=== PATIENT | female | born 1980 | race Caucasian/White ===

== ENCOUNTER 2023-10-18 17:50 | Emergency (ER) | payer OTHER, SELFPAY ==
[2023-10-18] VITALS (7 sets, daily range): BP systolic 128–139; BP diastolic 58–86; PULSE 82–90; RESP 18; TEMP 37.1; O2SAT 94–97; BMI 38.2
--- NOTE | 2023-10-18 18:17 | ED_ITS ---
HPI - Eye Problem General Chief complaint: Eye Problems Stated complaint: Dr magaña/sudden vision loss Time Seen by Provider: 10/18/23 18:15 Source: patient Mode of arrival: Ambulatory History of Present Illness HPI Narrative: 43-year-old female with recent diagnosis of diabetes starting oral agent last month, PCP in [facility], she is camping locally, felt that she has had blurred vision and loss of near vision since yesterday, worsening blurred and near vision problems both eyes through the day today, wears the same prescription reading glasses. She denies any weakness to her face arm or leg. She denies numbness to face arm or leg. She has no visual spots or double vision. She has no associated headache or neck pain. She has not had any previous stroke before. She is taking her oral agent, checking her sugars, her sugar today was 160 not particularly elevated. She has not take blood thinner medication, denies use of aspirin or Plavix or other antiplatelet agents Related Data Allergies Allergy/AdvReac Type Severity Reaction Status Date / Time No Known Drug Allergies Allergy Verified 10/18/23 18:03 Review of Systems Review of Systems Narrative: per HPI Patient History Social History Smoking Status: Never smoker Smoking Status: Never smoker alcohol intake frequency: other Substance Use Type: does not use Exam Narrative Exam Narrative: GENERAL: Well-developed patient, in mild distress. HEAD: Atraumatic. Normocephalic. EYES: Pupils equal round and reactive. Extraocular motions intact. No scleral icterus. No injection or drainage. Wearing corrective lens glasses that appear to be in good condition. ENT: Nose without bleeding, purulent drainage. Throat without erythema, tonsillar hypertrophy or exudate. Airway patent. NECK: Trachea midline. Non tender CARDIOVASCULAR: Regular rate and rhythm without murmurs, gallops, or rubs. RESPIRATORY: Clear to auscultation. Breath sounds equal bilaterally. No wheezes, rales, or rhonchi. GASTROINTESTINAL: Abdomen soft, non-tender, nondistended. EXTREMITIES: No edema or joint tenderness. BACK: Nontender without deformity or crepitance. No flank tenderness. NEURO: AOx3. Motor 5/5 upper and lower extremities. Cranial nerve exam unremarkable. Extraocular muscles intact, no visual field defects on confrontational field testing, wearing her usual corrective lens glasses. SKIN: No rash or erythema of visible areas Initial Vital Signs Initial Vital Signs: Vital Signs Temperature 98.7 F 10/18/23 17:56 Pulse Rate 82 10/18/23 17:56 Respiratory Rate 18 10/18/23 17:56 Blood Pressure 139/86 10/18/23 17:56 Pulse Oximetry 94 10/18/23 17:56 Oxygen Delivery Method Room Air 10/18/23 17:56 Course Orders Ordered: ED Orders 10/18/23 18:16 CT angio head and neck Stat 10/18/23 18:31 CBC Auto Diff [Complete Blood Count AUTO DIFF] Stat CMP [Comprehensive Metabolic Panel] Stat Hemoglobin A1C% w Est Avg Glu Stat Prothrombin Time INR Stat 10/18/23 18:38 MR head/brain wo con Stat Vital Signs Vital signs: Vital Signs - 8 hr 10/18/23 20:10 10/18/23 20:11 10/18/23 20:11 Pulse Rate 85 90 Blood Pressure 138/77 Pulse Oximetry 97 97 10/18/23 20:30 10/18/23 20:30 10/18/23 20:57 Pulse Rate 82 83 Blood Pressure 130/58 L Pulse Oximetry 95 95 10/18/23 20:58 Pulse Rate Blood Pressure 130/61 Pulse Oximetry MDM - Eye Problem Lab Data Attestation: I reviewed the patient's lab results. 10/18/23 18:31 10/18/23 18:31 Labs: Lab Results 10/18/23 Range/Units 18:31 WBC 8.0 (4.5-11.0) X10^3/uL RBC 4.72 (4.0-5.2) X10^6/uL Hgb 12.6 (12.0-16.0) g/dL Hct 38.6 (36-46) % MCV 81.7 (80-100) fL MCH 26.8 (26-34) PG MCHC 32.8 (30-36) % RDW 15.3 H (11.6-14.8) % Plt Count 353 (150-400) X10^3/uL Neut % (Auto) 63.5 (50-75) % Lymph % (Auto) 30.0 (25-40) % Craig % (Auto) 4.4 (3-14) % Eos % (Auto) 1.3 L (2-4) % Baso % (Auto) 0.8 (0-2) % Neut # (Auto) 5100 (3811-1418) /uL Lymph # (Auto) 2400 (0701-5960) /uL Craig # (Auto) 400 (0-900) /uL Eos # (Auto) 100 (0-450) /uL Baso # (Auto) 100 (0-100) /uL PT 11.6 (9.4-12.5) SECONDS INR 1.0 (0.9-1.3) Sodium 139 (137-145) mmol/L Potassium 3.7 (3.4-5.1) mmol/L Chloride 106 (98-107) mmol/L Carbon Dioxide 22 (22-32) mmol/L BUN 13 (7-17) mg/dL Creatinine 0.84 (0.52-1.04) mg/dL Estimated GFR > 60 (>60) mL/min BUN/Creatinine Ratio 15.5 (6-22) Glucose 132 H (70-100) mg/dL Hemoglobin A1c 8.6 H (4.0-6.0) % Calcium 9.2 (8.4-10.2) mg/dL Total Bilirubin 0.3 (0.2-1.3) mg/dL AST 37 H (14-36) IU/L ALT 32 (<35) IU/L Alkaline Phosphatase 83 (38-126) U/L Total Protein 7.8 (6.3-8.2) g/dL Albumin 4.3 (3.5-5.0) g/dL Globulin 3.5 (1.7-4.1) g/dL Albumin/Globulin Ratio 1.2 (1.0-2.8) Imaging Data CT scan - head: Radiologist's Impression: [address] [address] [address] Scan Report Signed Patient: Ni Tyler MR#: [id number] : 1980 Acct:[id number] Age/Sex: 43 / F Date of Service: 10/18/23 Loc: ED Accession Number: [id number] Procedure: CT head/brain wo con Ordering Provider: Delfino Escamilla MD PROCEDURE: CT HEAD/BRAIN WO CON INDICATIONS: vision loss TECHNIQUE: Noncontrast 4.5 mm thick angled axial sections acquired from the foramen magnum to the vertex, with coronal and sagittal reformats. For radiation dose reduction, the following was used: automated exposure control, adjustment of mA and/or kV according to patient size. COMPARISON: None. FINDINGS: Image quality: Diagnostic. CSF spaces: Basal cisterns are patent. No extra-axial fluid collections. Ventricles are normal in size and shape. Brain: No midline shift. No intracranial masses or hemorrhage. Curtis-white matter interface is normal. Skull and face: Calvarium and visualized facial bones are intact, without suspicious lesions. Sinuses: Visualized sinuses and mastoids are clear. IMPRESSION: No acute intracranial pathology. Dictated by: Zack Sim M.D. on 10/18/2023 at 19:21 Approved by: Zack Sim M.D. on 10/18/2023 at 19:22 CT Angiogram Head and Neck: Radiologist's Impression: [place] [address] CT Scan Report Signed Patient: Ni Tyler MR#: [id number] : 1980 Acct:[id number] Age/Sex: 43 / F Date of Service: 10/18/23 Loc: ED Accession Number: [id number] Procedure: CT angio head and neck Ordering Provider: Delfino Escamilla MD PROCEDURE: CT ANGIO HEAD AND NECK INDICATIONS: acute vision loss TECHNIQUE: After the administration of intravenous contrast, 1 mm thick sections acquired from the aortic arch through the [place] of [place]. 3-dimensional pkiqeof-avqrmgfyk-mpldzlbsrw (MIP) and/or volume rendering reformats were acquired of the central intracranial vasculature and neck separately. For radiation dose reduction, the following was used: automated exposure control, adjustment of mA and/or kV according to patient size. COMPARISON: None. FINDINGS: Image quality: Diagnostic. BRAIN: CSF spaces: Ventricles are normal in size and shape. Basal cisterns are patent. No extra-axial fluid collections. Brain: No significant abnormality of the brain can be seen. Skull and face: Calvarium and facial bones appear intact, without suspicious lesions. Orbits appear normal. Sinuses: Sinuses and mastoids are clear. HEAD CT ANGIOGRAPHY: Anterior circulation: Intracranial internal carotid arteries are normal in size and flow. The flow within the paired anterior cerebral arteries is normal and symmetric. The flow within the middle cerebral arteries is normal and symmetric. The anterior communicating artery is seen. No aneurysms are seen. Posterior circulation: Visualized portions of the vertebral arteries demonstrate normal caliber, and join to form a normal appearing basilar artery. Flow within the posterior cerebral arteries is normal and symmetric. No aneurysms are seen. NECK CT ANGIOGRAPHY: Carotid system: The great vessels demonstrate a conventional anatomy as they arise from the aortic arch. The origins of the common carotid arteries appear patent. The common carotid arteries demonstrate normal caliber and courses. The bifurcation regions are both widely patent. The internal carotid arteries demonstrate normal calibers and courses. Posterior circulation: The origins of the vertebral arteries both appear widely patent. The more superior extracranial portions of both vertebral arteries also demonstrate normal courses and calibers. They join to form a normal appearing basilar artery. Soft tissues: Visualized neck soft tissues demonstrate no suspicious abnormalities. Bones: No suspicious bony lesions. Visualized cervical spine appears normally aligned. IMPRESSION: No significant intracranial arterial abnormality is seen. No significant abnormality is seen within the arteries of the neck. Any quantitative measurements of stenosis were performed using NASCET criteria. Dictated by: Zack Sim M.D. on 10/18/2023 at 19:22 Approved by: Zack Sim M.D. on 10/18/2023 at 19:23 MRI Brain: Radiologist's Impression: [place] [address] Magnetic Resonance Report Signed Patient: Ni Tyler MR#: [id number] : 1980 Acct:[id number] Age/Sex: 43 / F Date of Service: 10/18/23 Loc: ED Accession Number: [id number] Procedure: MR head/brain wo con Ordering Provider: Delfino Escamilla MD PROCEDURE: MR HEAD/BRAIN WO CON INDICATIONS: vision problems bilateral yesterday, worse today TECHNIQUE: Noncontrast axial T1 spin echo, axial T2 fast spin echo, sagittal and axial FLAIR, coronal T2 fast spin echo, axial gradient echo, axial diffusion and ADC through the brain. COMPARISON: [facility], CT, CT HEAD/BRAIN WO CON, 10/18/2023, 18:29. FINDINGS: Image quality: Excellent. CSF Spaces: Basal cisterns are patent. No extra-axial fluid collections. Ventricles are normal in size and shape. Brain: No intracranial masses or hemorrhage. Curtis/white matter interface is normal. Brainstem appears normal. Diffusion-weighted images demonstrate no acute infarct. No chronic ischemic insults. Normal intravascular flow voids are present. Skull and face: Calvarium has normal marrow signal. Orbits appear normal. Sinuses: Sinuses and mastoids are clear. IMPRESSION: No acute infarction. No intracranial bleed, midline shift or mass effect. Dictated by: Zack Sim M.D. on 10/18/2023 at 19:19 Approved by: Zack Sim M.D. on 10/18/2023 at 19:19 [facility] Narrative Medical decision making narrative: 43-year-old female with problems with near vision and inability to read close up, since yesterday, worsening through the day today, recent diagnosis of diabetes taking new oral agent. Glucose 160 reported today not elevated. Consider lens refraction error due to glucose/fluid shifts with recent treatment of diabetes. Patient concerned about possible stroke. Apparently had called her doctor, referred here for further evaluation. Labs pending. CT head noncontrast study requested, CTA head and neck vessels was requested. Consider MRI brain if no lesions identified. Patient agreeable to this approach. CT head no acute changes. CTA head and neck vessels without narrowing or thrombosis or acute changes. MRI brain showed no stroke or other acute changes. See radiology reports. Copies of advanced imaging reports for patient to take in follow up home area. She was not planning to leave the area for the next few days, advised to follow up with local eye clinic, contact information given, to call office later today or tomorrow. Return precautions discussed Critical Care Time Critical Care Time Critical Care Time: Yes Total Critical Care Time: 31 Attestation: The high probability of a clinically significant, sudden or life threatening deterioration of the [ophthalmologic, craniofacial, cerebrovascular] system(s) required my full and direct attention, intervention and personal management. The aggregate critical care time was [31] minutes. This time is in addition to time spent performing reported procedures but includes the following: [x] Data Review and interpretation [x] Patient assessment and monitoring of vital signs [x] Documentation [x] Medication orders and management Discharge Plan Departure Patient Disposition: Home Clinical Impression: Changes in vision, History of diabetes mellitus Activity Restrictions/Additional Instructions: Change in vision both eyes, using same corrective lenses, history of diabetes with recent medication. It is possible the your eyes or just adjusting to the diabetes medication. We did do studies to make sure there was not any stroke changes, though this would seem unusual if it was happening in both eyes at the same time. CT scan of the brain negative, CT angiogram of head and neck vessels unremarkable. MRI of the brain showed no stroke changes. Consider taking a baby aspirin daily. Follow up though with local eye doctor tomorrow in the next day with close follow up, to see if there is any other concerns, or if you might need a change in prescription or some other diagnostic or therapeutic interventions. Recheck earlier if any change worsening symptoms to this nearest emergency department Contact information given for local fiberg[employer] Dr. Morrison, consider calling her office tomorrow for close follow up appointment. Referrals: Mile Morrison MD [Physician] - Stand Alone Forms: Patient Portal/API
--- NOTE | 2023-10-18 18:38 | DI.MRI.S_ITS ---
PROCEDURE: MR HEAD/BRAIN WO CON INDICATIONS: vision problems bilateral yesterday, worse today TECHNIQUE: Noncontrast axial T1 spin echo, axial T2 fast spin echo, sagittal and axial FLAIR, coronal T2 fast spin echo, axial gradient echo, axial diffusion and ADC through the brain. COMPARISON: [facility], CT, CT HEAD/BRAIN WO CON, 10/18/2023, 18:29. FINDINGS: Image quality: Excellent. CSF Spaces: Basal cisterns are patent. No extra-axial fluid collections. Ventricles are normal in size and shape. Brain: No intracranial masses or hemorrhage. Curtis/white matter interface is normal. Brainstem appears normal. Diffusion-weighted images demonstrate no acute infarct. No chronic ischemic insults. Normal intravascular flow voids are present. Skull and face: Calvarium has normal marrow signal. Orbits appear normal. Sinuses: Sinuses and mastoids are clear. IMPRESSION: No acute infarction. No intracranial bleed, midline shift or mass effect. Dictated by: Zack Sim M.D. on 10/18/2023 at 19:19 Approved by: Zack Sim M.D. on 10/18/2023 at 19:19
[2023-10-18 18:40] LABS: Add Manual Diff / Slide Review NO; Basophils Absolute Auto 100 /uL (0-100); Basophils Percent Auto 0.8 % (0-2); Eosinophils Absolute Auto 100 /uL (0-450); Eosinophils Percent Auto 1.3 % (2-4); Hematocrit 38.6 % (36-46); Hemoglobin 12.6 g/dL (12.0-16.0); Lymphocytes Absolute Auto 2400 /uL (1100-4500); Mean Corpuscular HGB Conc 32.8 % (30-36); Mean Corpuscular Hemoglobin 26.8 PG (26-34); Mean Corpuscular Volume 81.7 fL (80-100); Monocytes Absolute Auto 400 /uL (0-900); Monocytes Percent Auto 4.4 % (3-14); Neutrophils Absolute Auto 5100 /uL (1500-7000); Neutrophils Percent Auto 63.5 % (50-75); Platelet Count 353 X10^3/uL (150-400); Red Blood Cell Count 4.72 X10^6/uL (4.0-5.2); Red Cell Distribution Width 15.3 % (11.6-14.8)
[2023-10-18 18:49] LABS: Prothrombin Time 11.6 SECONDS (9.4-12.5)
[2023-10-18 18:55] LABS: Alanine Aminotransferase 32 IU/L (<35); Albumin 4.3 g/dL (3.5-5.0); Albumin Globulin Ratio 1.2 (1.0-2.8); Alkaline Phosphatase 83 U/L (38-126); Aspartate Aminotransferase 37 IU/L (14-36); BUN Creatinine Ratio 15.5 (6-22); Bilirubin Total 0.3 mg/dL (0.2-1.3); Blood Urea Nitrogen 13 mg/dL (7-17); Calcium 9.2 mg/dL (8.4-10.2); Carbon Dioxide 22 mmol/L (22-32); Chloride 106 mmol/L (98-107); Estimated Glomerular Filt Rate > 60 mL/min (>60); Globulin 3.5 g/dL (1.7-4.1); Glucose 132 mg/dL (70-100); HEMOLYSIS < 15 (0-50); Potassium 3.7 mmol/L (3.4-5.1); Sodium 139 mmol/L (137-145); Total Protein 7.8 g/dL (6.3-8.2)
[2023-10-18 19:50] LABS: Hemoglobin A1C% w Est Avg Glu 8.6 % (4.0-6.0)
== END 2023-10-18 21:00 | disposition home or self-care (01) ==
PROVIDERS: Emergency Provider Emergency Medicine
DX: H53.9 Unspecified visual disturbance (principal); E11.9 Type 2 diabetes mellitus without complications
CPT/HCPCS: 36415; 70450; 70496; 70498; 70551; 80053; 83036; 85025; 85610; 99284; Q9967